=== PATIENT | female | born 1995 | race Caucasian/White ===

== ENCOUNTER 2018-05-07 01:18 | Emergency (ER) | payer OTHER ==
[2018-05-07 01:51] LABS: CONTROL LINE UCG INT CTR LINE PRESENT; URINE PREG TEST NEGATIVE (NEGATIVE)
[2018-05-07 01:53] LABS: KETONE, URINE AUTO RFX TRACE mg/dL (NEGATIVE); LEUKOCYTE ESTERASE UR AUTO RFX NEGATIVE (NEGATIVE); MUCUS, URINE RFX SMALL (NEGATIVE); NITRITE, URINE AUTO RFX NEGATIVE (NEGATIVE); RBC, URINE AUTO RFX 2 /HPF (0-3); SPECIFIC GRAVITY UR AUTO RFX 1.024 (1.002-1.035); SQUAM EPITHELIAL CELL UR AURFX 0 /HPF (0-6); WBC, URINE AUTO RFX 2 /HPF (0-3)
[2018-05-07 02:34] LABS: BASO % 0.3 % (0.0-1.0); EOS # 0.1 10^3/uL (0.0-0.50); EOS % 0.5 % (0.0-3.0); HEMATOCRIT 36.2 % (36.0-47.0); HEMOGLOBIN 12.9 g/dl (12.0-15.5); IMMATURE GRANULOCYTE % 0.2 % (0-3.0); LYMPH # 2.1 10^3/uL (1.5-6.5); LYMPH % 21.2 % (24.0-44.0); MEAN CORPUSCULAR HEMOGLOBIN 33.2 pg (27.0-33.0); MEAN CORPUSCULAR HGB CONC 35.6 g/dl (32.0-36.5); MEAN CORPUSCULAR VOLUME 93.3 fl (80.0-96.0); MONO # 0.7 10^3/uL (0.0-0.8); MONO % 6.8 % (0.0-5.0); NEUTROPHILS # 7.1 10^3/uL (1.8-7.7); PLATELET COUNT, AUTOMATED 269 10^3/uL (150-450); RED BLOOD COUNT 3.88 10^6/uL (4.00-5.40); RED CELL DISTRIBUTION WIDTH 11.9 % (11.5-14.5); WHITE BLOOD COUNT 9.9 10^3/uL (4.0-10.0)
[2018-05-07] MEDS: NS 1,000 ML IV (02:34)
[2018-05-07 02:54] LABS: CONTROL LINE HCG INT CTR LINE PRESENT; HCG, SERUM QUALITATIVE NEGATIVE (NEGATIVE)
[2018-05-07 02:55] LABS: ANION GAP 7 MEQ/L (8-16); BLOOD UREA NITROGEN 22 MG/DL (7-18); CALCIUM LEVEL 8.4 MG/DL (8.5-10.1); CARBON DIOXIDE LEVEL 29 MEQ/L (21-32); CHLORIDE LEVEL 106 MEQ/L (98-107); CREATININE FOR GFR 1.01 MG/DL (0.55-1.30); ETHYL ALCOHOL (ETHANOL) < 0.003 % (0.000-0.010); GLOMERULAR FILTRATION RATE > 60.0 (>60); GLUCOSE, FASTING 84 MG/DL (70-100); POTASSIUM SERUM 3.9 MEQ/L (3.5-5.1); SODIUM LEVEL 142 MEQ/L (136-145)
== END 2018-05-07 04:01 | disposition home or self-care (01) ==
LOC: M ED 01:18
DX: E86.0 Dehydration (principal); Z72.0 Tobacco use
CPT/HCPCS: G0480

== ENCOUNTER 2018-08-15 14:39 | Inpatient (IN) | payer OTHER ==
[2018-08-15 15:46] LABS: HEMOGLOBIN 14.3 g/dl (12.0-15.5); MEAN CORPUSCULAR HEMOGLOBIN 33.3 pg (27.0-33.0); MEAN CORPUSCULAR HGB CONC 34.9 g/dl (32.0-36.5); MEAN CORPUSCULAR VOLUME 95.3 fl (80.0-96.0); PLATELET COUNT, AUTOMATED 349 10^3/uL (150-450); RED CELL DISTRIBUTION WIDTH 11.8 % (11.5-14.5); WHITE BLOOD COUNT 6.6 10^3/uL (4.0-10.0)
[2018-08-15 16:32] LABS: ACETAMINOPHEN LEVEL < 2.0 UG/ML (10.0-30.0); ALBUMIN 4.7 GM/DL (3.2-5.2); ALBUMIN/GLOBULIN RATIO 1.38 (1.00-1.93); ALKALINE PHOSPHATASE 68 U/L (45-117); ALT/SGPT 20 U/L (12-78); ANION GAP 7 MEQ/L (8-16); AST/SGOT 17 U/L (7-37); BILIRUBIN,DIRECT 0.2 MG/DL (0.0-0.2); BILIRUBIN,TOTAL 0.7 MG/DL (0.2-1.0); BLOOD UREA NITROGEN 15 MG/DL (7-18); CALCIUM LEVEL 9.6 MG/DL (8.5-10.1); CARBON DIOXIDE LEVEL 28 MEQ/L (21-32); CHLORIDE LEVEL 104 MEQ/L (98-107); CONTROL LINE HCG INT CTR LINE PRESENT; CREATININE FOR GFR 0.87 MG/DL (0.55-1.30); ETHYL ALCOHOL (ETHANOL) < 0.003 % (0.000-0.010); GLOMERULAR FILTRATION RATE > 60.0 (>60); GLUCOSE, FASTING 80 MG/DL (70-100); HCG, SERUM QUALITATIVE NEGATIVE (NEGATIVE); POTASSIUM SERUM 4.6 MEQ/L (3.5-5.1); SALICYLATE LEVEL < 1.7 MG/DL (5.0-30.0); SODIUM LEVEL 139 MEQ/L (136-145); THYROID STIMULATING HORMONE 0.987 uIU/ML (0.358-3.740); TOTAL PROTEIN 8.1 GM/DL (6.4-8.2)
[2018-08-15 17:33] LABS: AMPHETAMINES LEVEL URINE NEGATIVE (NEGATIVE); BARBITURATES URINE NEGATIVE (NEGATIVE); BENZODIAZEPINES URINE NEGATIVE (NEGATIVE); CANNABINOIDS URINE POSITIVE (NEGATIVE); COCAINE METABOLITE URINE NEGATIVE (NEGATIVE); METHADONE URINE NEGATIVE (NEGATIVE); OPIATES URINE NEGATIVE (NEGATIVE); PHENCYCLIDINE URINE NEGATIVE (NEGATIVE)
[2018-08-15] MEDS ORDERED: MOM 30ML SUSPENSION UDC PO (22:15)
[2018-08-15] MEDS ORDERED: MAALOX 30 ML SUSP *UDC PO (22:15)
[2018-08-16] MEDS: traZODone 50 MG TAB PO ×2 (01:37→22:05)
[2018-08-16] MEDS: INFLUENZA QUADRIVALENT PF VACCINE 0.5ML SYRINGE (90686) IM (09:50)
[2018-08-16] MEDS: NICOTINE 21MG/24HR 1 EA TRANSDERMAL TD (14:16)
[2018-08-16] MEDS: hydrOXYzine 50 MG TAB PO (15:48)
[2018-08-16] MEDS: hydrOXYzine 25 MG TAB PO (18:08)
[2018-08-16] MEDS: GABAPENTIN 100 MG CAP PO (21:33)
[2018-08-16] MEDS: PRAZOSIN 1 MG CAP PO (21:33)
[2018-08-17] MEDS: hydrOXYzine 25 MG TAB PO ×5 (06:26→23:33)
[2018-08-17] MEDS: NICOTINE 21MG/24HR 1 EA TRANSDERMAL TD (09:00)
[2018-08-17] MEDS: GABAPENTIN 100 MG CAP PO ×3 (09:25→21:03)
[2018-08-17] MEDS: VENLAFAXINE 37.5 MG TAB PO (09:25)
[2018-08-17] MEDS: PRAZOSIN 1 MG CAP PO (21:05)
[2018-08-17] MEDS: CYCLOBENZAPRINE 5MG TABLET PO (21:06)
[2018-08-17] MEDS: traZODone 50 MG TAB PO (23:33)
[2018-08-18] MEDS: hydrOXYzine 25 MG TAB PO ×4 (05:30→23:56)
[2018-08-18] MEDS: NICOTINE 21MG/24HR 1 EA TRANSDERMAL TD (09:00)
[2018-08-18] MEDS: VENLAFAXINE 37.5 MG TAB PO (09:55)
[2018-08-18] MEDS: GABAPENTIN 100 MG CAP PO ×3 (09:55→22:04)
[2018-08-18] MEDS: CYCLOBENZAPRINE 5MG TABLET PO ×2 (09:55→22:04)
[2018-08-18] MEDS: ACETAMINOPHEN TAB 650MG DOSE (2X325MG) PO (13:22)
[2018-08-18] MEDS: PRAZOSIN 1 MG CAP PO (22:04)
[2018-08-18] MEDS: traZODone 50 MG TAB PO (23:56)
[2018-08-19] MEDS: hydrOXYzine 25 MG TAB PO ×3 (06:05→18:03)
[2018-08-19] MEDS: NICOTINE 21MG/24HR 1 EA TRANSDERMAL TD (08:07)
[2018-08-19] MEDS: GABAPENTIN 100 MG CAP PO ×3 (08:09→21:30)
[2018-08-19] MEDS: VENLAFAXINE 37.5 MG TAB PO (08:09)
[2018-08-19] MEDS: CYCLOBENZAPRINE 5MG TABLET PO ×3 (08:09→21:30)
[2018-08-19] MEDS: ACETAMINOPHEN TAB 650MG DOSE (2X325MG) PO (21:30)
[2018-08-19] MEDS: DIVALPROEX 500MG *ER* TAB PO (21:30)
[2018-08-19] MEDS: PRAZOSIN 1 MG CAP PO (21:31)
[2018-08-20] MEDS: hydrOXYzine 25 MG TAB PO ×3 (00:11→18:15)
[2018-08-20] MEDS: traZODone 50 MG TAB PO ×2 (00:11→23:53)
[2018-08-20] MEDS: GABAPENTIN 100 MG CAP PO ×3 (08:04→21:43)
[2018-08-20] MEDS: VENLAFAXINE 37.5 MG TAB PO (08:05)
[2018-08-20] MEDS: CYCLOBENZAPRINE 5MG TABLET PO ×3 (08:05→21:43)
[2018-08-20] MEDS: NICOTINE 21MG/24HR 1 EA TRANSDERMAL TD (08:06)
[2018-08-20] MEDS: clonazePAM 0.5 MG TAB PO ×2 (09:28→21:49)
[2018-08-20] MEDS ORDERED: PILL CRUSHER/CUTTER 1 EACH XX (18:15)
[2018-08-20] MEDS ORDERED: hydrOXYzine 50 MG TAB PO (18:15)
[2018-08-20] MEDS: DIVALPROEX 500MG *ER* TAB PO (21:44)
[2018-08-20] MEDS: PRAZOSIN 1 MG CAP PO (21:45)
[2018-08-21] MEDS: hydrOXYzine 25 MG TAB PO ×2 (06:21→13:42)
[2018-08-21] MEDS: GABAPENTIN 100 MG CAP PO ×2 (08:55→15:50)
[2018-08-21] MEDS: CYCLOBENZAPRINE 5MG TABLET PO ×3 (08:55→20:54)
[2018-08-21] MEDS: VENLAFAXINE 37.5 MG TAB PO (08:55)
[2018-08-21] MEDS: NICOTINE 21MG/24HR 1 EA TRANSDERMAL TD (08:56)
[2018-08-21] MEDS: clonazePAM 0.5 MG TAB PO (09:43)
[2018-08-21] MEDS: PRAZOSIN 1 MG CAP PO (20:54)
[2018-08-21] MEDS: GABAPENTIN 300 MG CAP PO (20:54)
[2018-08-21] MEDS: traZODone 50 MG TAB PO (23:21)
[2018-08-21] MEDS: hydrOXYzine 50 MG TAB PO (23:21)
[2018-08-22] MEDS: hydrOXYzine 50 MG TAB PO (06:29)
[2018-08-22] MEDS: NICOTINE 21MG/24HR 1 EA TRANSDERMAL TD (09:00)
[2018-08-22] MEDS: VENLAFAXINE 37.5 MG TAB PO (09:25)
[2018-08-22] MEDS: CYCLOBENZAPRINE 5MG TABLET PO (09:25)
[2018-08-22] MEDS: GABAPENTIN 300 MG CAP PO (09:25)
== END 2018-08-22 10:20 | disposition home or self-care (01) | DRG 882 ==
LOC: M PSY 08-16 00:27 → M ED 14:39 → M ED INP 22:12
PROVIDERS: Psychiatry & Neurology Psychiatry
DX: F43.10 Post-traumatic stress disorder, unspecified (principal); F32.9 Major depressive disorder, single episode, unspecified; F41.1 Generalized anxiety disorder; Z62.810 Personal history of physical and sexual abuse in childhood; Z91.410 Personal history of adult physical and sexual abuse; Z79.899 Other long term (current) drug therapy; E73.9 Lactose intolerance, unspecified; F17.290 Nicotine dependence, other tobacco product, uncomplicated; Z81.3 Family history of other psychoactive substance abuse and dependence; F60.3 Borderline personality disorder

== ENCOUNTER 2019-09-25 17:47 | Emergency (ER) | payer OTHER ==
[~2019-09-25] VITALS: Ht 165.1 cm; Wt 75.5 kg
[2019-09-25 17:47] VITALS: BP 132/72
[~2019-09-25 17:47] MED LIST: CYCL5TAB PO; GABA-843 PO; HYDR-3363 PO; HYDR1TAB33 PO; MINI1CAP PO; NAPR-885 PO; NAPR1TAB86 PO; NICO21PAT TD; PRAZ1CAP PO; PROP10TA56 PO; PROZ20CA11 PO; TIZA2TA PO; TRAZ-252 PO; TRAZ1TAB10 PO; VENL37TA PO; VISI0.054 OU; hydroxizine PO
[2019-09-25] MEDS ORDERED: TOPI25TA10 (17:57)
[2019-09-25] MEDS ORDERED: FLUO40CA (17:57)
[2019-09-25] MEDS ORDERED: CELE1CAP7 (17:57)
[2019-09-25] MEDS ORDERED: LATU20TA (17:57)
[2019-09-25] MEDS ORDERED: CLON-412 (17:57)
[2019-09-25] MEDS ORDERED: AJOV225I (17:57)
[2019-09-25] MEDS ORDERED: CARI1TAB7 (17:57)
--- NOTE | 2019-09-25 18:27 | REP ---
Two-view chest: 09/25/2019. Indication: Cough. Comparison: None. Findings: The lungs are clear. There is no pleural effusion or pneumothorax. The cardiomediastinal silhouette is unremarkable. Impression: No acute cardiopulmonary process. Electronically Signed by Harvey Martinez DO 09/25/2019 06:18 P
== END 2019-09-25 19:30 | disposition left against medical advice (07) ==
LOC: M ED 17:47
DX: Z53.21 Procedure and treatment not carried out due to patient leaving prior to being seen by health care provider (principal)

== ENCOUNTER 2019-10-03 19:29 | Emergency (ER) | payer OTHER ==
[~2019-10-03] VITALS: Ht 167.6 cm; Wt 74.1 kg
[~2019-10-03 19:29] MED LIST changes: +AJOV225I; +CARI1TAB7; +CELE1CAP7; +CLON-412; +FLUO40CA; +LATU20TA; +TOPI25TA10
[2019-10-03 19:47] VITALS: BP 135/75
[2019-10-03] MEDS ORDERED: NS 1,000 ML IV ONE (20:15)
[2019-10-03] MEDS ORDERED: ACETAMINOPHEN 500 MG TAB PO ONE (20:15)
[2019-10-03 20:33] LABS: BASO % 0.4 % (0.0-1.0); EOS % 0.4 % (0.0-3.0); HEMATOCRIT 42.9 % (36.0-47.0); HEMOGLOBIN 14.2 g/dl (12.0-15.5); LYMPH # 2.7 10^3/uL (1.5-5.0); LYMPH % 30.5 % (24.0-44.0); MEAN CORPUSCULAR HEMOGLOBIN 32.3 pg (27.0-33.0); MEAN CORPUSCULAR HGB CONC 33.1 g/dl (32.0-36.5); MEAN CORPUSCULAR VOLUME 97.5 fl (80.0-96.0); MONO # 0.5 10^3/uL (0.0-0.8); MONO % 5.9 % (0.0-5.0); NEUTROPHILS # 5.6 10^3/uL (1.5-8.5); NEUTROPHILS % 62.6 % (36.0-66.0); PLATELET COUNT, AUTOMATED 410 10^3/uL (150-450); WHITE BLOOD COUNT 8.9 10^3/uL (4.0-10.0)
[2019-10-03 20:39] LABS: APPEARANCE, URINE CLEAR (CLEAR); BACTERIA, URINE AUTO 1+ (NEGATIVE); BILIRUBIN, URINE AUTO NEGATIVE (NEGATIVE); BLOOD, URINE BLOOD 1+ (NEGATIVE); COLOR, URINE YELLOW (YELLOW); GLUCOSE, URINE (UA) AUTO NEGATIVE (NEGATIVE); KETONE, URINE AUTO NEGATIVE (NEGATIVE); LEUKOCYTE ESTERASE, URINE AUTO NEGATIVE (NEGATIVE); MUCUS, URINE SMALL (NEGATIVE); NITRITE, URINE AUTO NEGATIVE (NEGATIVE); PROTEIN, URINE AUTO NEGATIVE (NEGATIVE); RBC, URINE AUTO 3 /HPF (0-3); SPECIFIC GRAVITY URINE AUTO 1.028 (1.002-1.035); SQUAMOUS EPITHELIAL CELL UR AU 4 /HPF (0-6); UROBILINOGEN, URINE AUTO 0.2 mg/dL (0.0-2.0); WBC, URINE AUTO 3 /HPF (0-3)
[2019-10-03 21:05] LABS: ALBUMIN 3.9 GM/DL (3.2-5.2); ALT/SGPT 22 U/L (12-78); BILIRUBIN,DIRECT 0.1 MG/DL (0.0-0.2); BILIRUBIN,TOTAL 0.2 MG/DL (0.2-1.0); BLOOD UREA NITROGEN 15 MG/DL (7-18); CALCIUM LEVEL 9.3 MG/DL (8.5-10.1); CARBON DIOXIDE LEVEL 28 MEQ/L (21-32); CHLORIDE LEVEL 106 MEQ/L (98-107); CREATININE FOR GFR 0.84 MG/DL (0.55-1.30); GLOMERULAR FILTRATION RATE > 60.0 (>60); GLUCOSE, FASTING 75 MG/DL (70-100); LIPASE 92 U/L (73-393); POTASSIUM SERUM 4.5 MEQ/L (3.5-5.1); SODIUM LEVEL 140 MEQ/L (136-145); TOTAL PROTEIN 7.8 GM/DL (6.4-8.2)
[2019-10-03 21:15] LABS: HCG, SERUM QUALITATIVE NEGATIVE (NEGATIVE)
[2019-10-03] MEDS ORDERED: ISOVUE-370 76% 100ML VIAL (Q9967) As Ordered ONE (21:24)
[2019-10-03] MEDS ORDERED: KETOROLAC 30 MG/ML VIAL (J1885) IV ONE (21:30)
--- NOTE | 2019-10-03 22:25 | REPVR ---
PROCEDURE INFORMATION: Exam: CT Angiography Chest With Contrast Exam date and time: 10/03/2019 9:43 PM Age: 24 years old Clinical indication: Chest pain; Additional info: R colic TECHNIQUE: Imaging protocol: Computed tomographic angiography of the chest with intravenous contrast. 3D rendering: MIP and/or 3D reconstructed images were created by the technologist. Radiation optimization: All CT scans at this facility use at least one of these dose optimization techniques: automated exposure control; mA and/or kV adjustment per patient size (includes targeted exams where dose is matched to clinical indication); or iterative reconstruction. Contrast material: ISOVUE 370; Contrast volume: 75 ml; Contrast route: IV; COMPARISON: CR Chest, 2 view PA, Lat 09/25/2019 6:05 PM FINDINGS: Pulmonary arteries: Normal. No pulmonary emboli. Aorta: Unremarkable. No aortic aneurysm. No aortic dissection. Lungs: Unremarkable. No consolidation. No masses. Pleural space: Unremarkable. No pneumothorax. No pleural effusion. Heart: Unremarkable. No cardiomegaly. No pericardial effusion. Lymph nodes: Unremarkable. No enlarged lymph nodes. Bones/joints: Unremarkable. No acute fracture. Soft tissues: Unremarkable. IMPRESSION: No acute findings. Electronically signed by: Vonnie Brown On 10/03/2019 22:25:30 PM
--- NOTE | 2019-10-03 22:36 | REPVR ---
PROCEDURE INFORMATION: Exam: CT Abdomen And Pelvis Without Contrast Exam date and time: 10/03/2019 9:43 PM Age: 24 years old Clinical indication: Abdominal pain; Flank; Right; Additional info: R colic TECHNIQUE: Imaging protocol: Computed tomography of the abdomen and pelvis without contrast. Radiation optimization: All CT scans at this facility use at least one of these dose optimization techniques: automated exposure control; mA and/or kV adjustment per patient size (includes targeted exams where dose is matched to clinical indication); or iterative reconstruction. COMPARISON: No relevant prior studies available. FINDINGS: Liver: There is a 3.5 mm hypodensity in the liver which may represent a small fat deposit or less likely air. Series 201 image 20, the liver is otherwise unremarkable. Gallbladder and bile ducts: The gallbladder is normal. Pancreas: The pancreas is normal. Spleen: The spleen is normal. Adrenals: The adrenal glands are normal. Kidneys and ureters: There is one calcification in the right kidney without hydronephrosis. No calculi are seen in the left kidney nor hydronephrosis. There is no perinephric stranding. Stomach and bowel: There is no evidence of intestinal obstruction. Appendix: A normal appendix is identified, Series 202 images 60-62. Intraperitoneal space: Unremarkable. No free air. No significant fluid collection. Vasculature: The aorta is normal. Lymph nodes: Unremarkable. No enlarged lymph nodes. Bladder: The bladder is unremarkable. Reproductive: Uterus and adnexa are not well assessed and as noncontrast study. Bones/joints: Unremarkable. No acute fracture. Soft tissues: Unremarkable. IMPRESSION: There is one punctate nonobstructing calculus in the right kidney. Electronically signed by: Vonnie Brown On 10/03/2019 22:36:25 PM
[2019-10-03] MEDS ORDERED: KETO10TAB PO (23:02)
[2019-10-03] MEDS ORDERED: MORPHINE 2 MG/ML 1ML VIAL (J2270) IV ONE (23:15)
== END 2019-10-03 23:49 | disposition home or self-care (01) ==
LOC: M ED 19:29
DX: R07.89 Other chest pain (principal); F33.9 Major depressive disorder, recurrent, unspecified; Z88.8 Allergy status to other drugs, medicaments and biological substances; E73.9 Lactose intolerance, unspecified; Z79.899 Other long term (current) drug therapy; F17.210 Nicotine dependence, cigarettes, uncomplicated
CPT/HCPCS: 36415; 71275; 74176; 80048; 80076; 81001; 83690; 84703; 85025; 87086; 96361; 96374; 96375; 99284; J1885; J2270; Q9967